=== PATIENT | female | born 1980 | race African-American/Black ===

== ENCOUNTER 2020-04-04 10:05 | Emergency (ER) | payer OTHER ==
[2020-04-04 10:17] VITALS: BP 128/70; PULSE 76; TEMP 97.9; BMI 25.1
--- OUTSIDE RECORDS SUMMARY | 2020-04-04 10:20 | XMS ---
:1980 Author Organization [facility] Support Name Relationship Address Phone [facility] [place] [address] DALLIN ARREGUIN MOTHER [address] [place] [address] Re-disclosure Warning The records that you are about to access may contain information from federally- assisted alcohol or drug abuse programs. If such information is present, then the following federally mandated warning applies: This information has been disclosed to you from records protected by federal confidentiality rules (42 CFR part 2). The federal rules prohibit you from making any further disclosure of this information unless further disclosure is expressly permitted by the written consent of the person to whom it pertains or as otherwise permitted by 42 CFR part 2. A general authorization for the release of medical or other information is NOT sufficient for this purpose. The Federal rules restrict any use of the information to criminally investigate or prosecute any alcohol or drug abuse patient.The records that you are about to access may contain highly sensitive health information, the redisclosure of which is protected by Article 27-F of the [facility] Public Health law. If you continue you may haveaccess to information: Regarding HIV / AIDS; Provided by facilities licensed or operated by the [facility] Office of Mental Health; or Provided by the [facility] Office for People With Developmental Disabilities. If such information is present, then the following [facility] mandated warning applies: This information has been disclosed to you from confidential records which are protected by state law. State law prohibits you from making any further disclosure of this information without the specific written consent of the person to whom it pertains, or as otherwise permitted by law. Any unauthorized further disclosure in violation of state law may result in a fine or usp sentence or both. A general authorization for the release of medical or other information is NOT sufficient authorization for further disclosure. 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
[2020-04-04] MEDS ORDERED: TETRACAINE 0.5% OPHTH SOLN 2 ML BOTTLE ONE (10:56)
[2020-04-04] MEDS ORDERED: FLUORESCEIN NA 1 EA STRIP OD ONE (10:56)
[2020-04-04] MEDS ORDERED: FLUORESCEIN NA 1 EA STRIP ONE (10:56)
--- NOTE | 2020-04-04 11:04 | PDOC ---
History of Present Illness - General Chief Complaint: Eye Problem Stated Complaint: RT. EYE ISSUE Time Seen by Provider: 04/04/20 10:37 History Source: Patient Exam Limitations: No Limitations - History of Present Illness Initial Comments: 04/04/20 11:02 39-year-old female denies past medical history presents complaining of right eye discomfort since yesterday evening. Patient wears contacts daily. Removed her contacts last night. Awoke this morning with light sensitivity and discomfort to right eye. Denies fever, chills, changes in vision, headache, recent illness or any other complaint. ROS: as above PE: GENERAL: well-appearing, NAD HEAD: NCAT EYES: VA: OS 20/20, OD 20/20, OU 20/20 (wearing corrective lenses) Pupils equal, round and reactive to light, sclera anicteric, conjunctiva clear, EOMI ENT: pharynx: no erythema, no exudate, uvula midline NECK: supple CHEST: nontender RESP: clear, no w/r/r CARDIO: rrr, no m/g/r ABD: +BS, soft, nontender, non distended BACK: no midline spinal ttp, no CVAT EXTREMITIES: Normal range of motion, no edema NEUROLOGICAL: Normal speech, normal gait SKIN: Warm, Dry Is this a multiple visit Asthma Patient?: No Past History - Medical History Allergies/Adverse Reactions: Allergies Allergy/AdvReac Type Severity Reaction Status Date / Time No Known Allergies Allergy Verified 04/04/20 10:12 Home Medications: Ambulatory Orders Erythromycin 0.5% Eye Ointment [Erythromycin 0.5% Eye Ointment -] 1 applic OD TID #1 tube 04/04/20 COPD: No - Reproductive History Is Patient Now?: No - Psycho-Social/Smoking History Smoking History: Never smoked *Physical Exam - Vital Signs Last Vital Signs Temp Pulse Resp BP Pulse Ox 97.9 F 76 18 128/70 100 04/04/20 10:08 04/04/20 10:08 04/04/20 10:08 04/04/20 10:08 04/04/20 10:08 ED Treatment Course - Medications Given in the ED: ED Medications Discontinued Medications Generic Name Dose Route Start Last Admin Trade Name Freq PRN Reason Stop Dose Admin Fluorescein Sodium 0 ea 04/04/20 10:56 04/04/20 11:01 Fluorets - OD 04/04/20 10:57 1 ea ONCE ONE Administration Medical Decision Making - Medical Decision Making 04/04/20 11:04 39-year-old female denies past medical history presents complaining of right eye discomfort since yesterday evening. Patient wears contacts daily. Removed her contacts last night. Awoke this morning with light sensitivity and discomfort to right eye. Denies fever, chills, changes in vision, headache, recent illness or any other complaint. 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 whom she will follow-up with Return to ED if fever, chills, eye pain or any worsening symptom Discharge - Discharge Information Problems reviewed: Yes Clinical Impression/Diagnosis: Corneal abrasion of right eye due to contact lens Condition: Stable Disposition: HOME - Admission No - Additional Discharge Information Prescriptions: Erythromycin 0.5% Eye Ointment [Erythromycin 0.5% Eye Ointment -] 1 applic OD TID #1 tube - Follow up/Referral Referrals: Ruiz Chen [Primary Care Provider] - - Patient Discharge Instructions Additional Instructions: Apply erythromycin ophthalmologic ointment to right eye 3 times a day Follow-up with your multiple drum sander within 1 week - Post Discharge Activity
[2020-04-04] MEDS ORDERED: ERYTHROMYCIN 0.5% OPHTHALMIC OINTMENT 3.5 GM TUBE OD ONE (11:25)
[2020-04-04] MEDS ORDERED: ERYTHROMYCIN 0.5% OPHTHALMIC OINTMENT 3.5 GM TUBE ONE ×2 (11:28)
== END 2020-04-04 11:25 | disposition home or self-care (01) ==
LOC: JER 10:05
DX: S05.01XA Injury of conjunctiva and corneal abrasion without foreign body, right eye, initial encounter (principal)
CPT/HCPCS: 99284-25

== ENCOUNTER 2020-12-01 04:40 | Day surgery (SDC) | payer OTHER ==
[2020-11-30 12:55] VITALS: BMI 25.1
[2020-12-01] MEDS ORDERED: oxyCODONE HCL 5 MG TABLET PO PRN (11:33)
[2020-12-01] MEDS ORDERED: IBUPROFEN 400 MG TABLET (FP) PO PRN (11:33)
[2020-12-01] MEDS ORDERED: ACETAMINOPHEN 325 MG TABLET (FP) PO PRN (11:33)
[2020-12-01] MEDS ORDERED: ONDANSETRON 4 MG/2 ML VIAL IVPUSH PRN (11:34)
[2020-12-01] MEDS ORDERED: PROPOFOL 20 ML ONE (12:34)
[2020-12-01] MEDS ORDERED: MIDAZOLAM HCL 2 MG/2 ML SINGLE DOSE VIAL ONE (12:35)
[2020-12-01] MEDS ORDERED: LACTATED RINGERS SOLUTION 1,000 ML IV SCH (12:45)
[2020-12-01 16:40] VITALS: BP 123/72; PULSE 68; TEMP 98.1
== END 2020-12-01 16:15 | disposition home or self-care (01) ==
LOC: JASU-SURG 04:40
PROVIDERS: ATTEND Obstetrics & Gynecology
PROC: 0UB98ZX Excision of Uterus, Via Natural or Artificial Opening Endoscopic, Diagnostic (ICD-10-PCS; principal; 2020-12-01 12:00)
PROC: 0UDB7ZX Extraction of Endometrium, Via Natural or Artificial Opening, Diagnostic (ICD-10-PCS; 2020-12-01 12:00)
DX: N92.0 Excessive and frequent menstruation with regular cycle (principal); N84.0 Polyp of corpus uteri
CPT/HCPCS: 36415; 84703; 86850; 86900; 86901; 88305-TC; 94760

== ENCOUNTER 2025-01-01 07:31 | Day surgery (SDC) | payer OTHER ==
[2024-12-30 15:12] VITALS: BMI 24.3
[2025-01-01] MEDS ORDERED: ACETAMINOPHEN 500 MG TABLET (FP) PO PRN (08:52)
[2025-01-01] MEDS ORDERED: LIDOCAINE HCL/PF 1% SDV 5ML VIAL ONE (13:28)
[2025-01-01] MEDS: LIDOCAINE HCL 1% PRESERVATIVE FREE - 30ML VIAL INF ONE (13:29)
[2025-01-01] MEDS: BUPIVACAINE HCL/PF 0.75% 10 ML VIAL CAUD ONE (13:33)
[2025-01-01 13:57] VITALS: BP 112/68; PULSE 67; RESP 20; TEMP 97.8
== END 2025-01-01 14:15 | disposition home or self-care (01) ==
LOC: JASU-SURG 07:31
PROVIDERS: ATTEND Pain Medicine Pain Medicine
PROC: 3E0T33Z Introduction of Anti-inflammatory into Peripheral Nerves and Plexi, Percutaneous Approach (ICD-10-PCS; 2025-01-01)
PROC: BR16ZZZ Fluoroscopy of Lumbar Facet Joint(s) (ICD-10-PCS; 2025-01-01)
PROC: 3E0T3BZ Introduction of Anesthetic Agent into Peripheral Nerves and Plexi, Percutaneous Approach (ICD-10-PCS; principal; 2025-01-01 13:45)
DX: M48.061 Spinal stenosis, lumbar region without neurogenic claudication (principal)
CPT/HCPCS: 76000-TC-FY